=== PATIENT | female | born 1975 | race Hispanic/Latino ===

== ENCOUNTER → 2017-04-26 | Outpatient (CLI) | payer OTHER | END | disposition home or self-care (01) | LOC: OIH 09:46 | PROVIDERS: ATTEND Family Medicine | DX: I10 Essential (primary) hypertension (principal) | CPT/HCPCS: 71046 ==

== ENCOUNTER → 2017-08-25 | Outpatient (CLI) | payer OTHER | END | disposition home or self-care (01) | LOC: RAH 07:52 | PROVIDERS: ATTEND Family Medicine | DX: R10.13 Epigastric pain (principal); N93.9 Abnormal uterine and vaginal bleeding, unspecified | CPT/HCPCS: 76700; 76856 ==